=== PATIENT | male | born 1980 | race Two or more races ===

== ENCOUNTER 2019-08-18 10:00 | Emergency (ER) | payer MEDICAID ==
[~2019-08-18] VITALS: Ht 167.6 cm; Wt 83.9 kg
[2019-08-18 10:06] VITALS: BP 128/82
== END 2019-08-18 13:14 | disposition home or self-care (01) ==
LOC: ER 10:00
DX: J06.9 Acute upper respiratory infection, unspecified (principal); J02.9 Acute pharyngitis, unspecified
CPT/HCPCS: 71046

== ENCOUNTER 2023-03-06 11:24 | Emergency (ER) | payer MEDICAID ==
[~2023-03-06] VITALS: Ht 170.2 cm; Wt 109.2 kg
[2023-03-06 11:37] VITALS: BP 148/79
[2023-03-06] MEDS ORDERED: HYDROcodone-ACET 5/325MG TAB PO ONE (13:45)
[2023-03-06] MEDS ORDERED: HYDR1TAB97 PO (14:28)
[2023-03-06] MEDS ORDERED: METH-1181 PO (14:28)
== END 2023-03-06 14:34 | disposition home or self-care (01) ==
LOC: ER 11:24
DX: M76.892 Other specified enthesopathies of left lower limb, excluding foot (principal)